=== PATIENT | male | born 1950 | race Caucasian/White ===

== ENCOUNTER 2024-05-04 10:54 | Day surgery (SDC) | payer OTHER ==
[~2024-05-04] VITALS: Ht 165.1 cm; Wt 59.0 kg
[2024-05-04] MEDS: LIDOCAINE 1% SDV 5ML VIAL As Ordered ONE (06:50)
[~2024-05-04 10:54] MED LIST: FLOM0.4C39 PO; LIDOCAINE 2% 100MG/5ML SDV (FOR ANES.) As Ordered ONE; OMEP10CASR PO; PHENYLEPHRINE 10% OPHTH SOL 5ML OS PRN; propofoL 200 MG/20 ML VIAL As Ordered ONE
[2024-05-04] MEDS: OFLOXACIN 0.3 % (OCUFLOX) OPTH SOL 5ML OS ONE (11:20)
[2024-05-04] MEDS: LIDOCAINE 3.5 % 1ML OPHTH TOPICAL GEL OU ONE (11:20)
[2024-05-04] MEDS: CYCLOPENTOLATE 1% OPHTH SOLN 2ML BTL OS SCH (11:29)
[2024-05-04] MEDS: TROPICAMIDE 1% OPHTH SOLN 15ML OS SCH (11:29)
[2024-05-04] MEDS: PHENYLEPHRINE 2.5% OPHTH SOL 2ML OS SCH (11:29)
[2024-05-04] MEDS ORDERED: fentaNYL 100 MCG/2 ML INJECTION As Ordered ONE (12:00)
[2024-05-04] MEDS ORDERED: MIDAZOLAM INJ 2MG/2ML VIAL As Ordered ONE (12:00)
[2024-05-04] MEDS: BSS IRRIG/VANCO(10MG)/TOBRA(5MG)/EPINEPH(1:1000-0.5CC)500ML BAG-ORONLY As Ordered ONE (12:14)
[2024-05-04] MEDS: CEFUROXIME 1MG/0.1ML INTRACAMERAL INJ As Ordered ONE (12:14)
[2024-05-04 12:28] VITALS: BP 146/76; TEMP 97.7; O2SAT 96
== END 2024-05-04 12:47 | disposition home or self-care (01) ==
LOC: M SDC 10:54
PROVIDERS: ATTEND Ophthalmology
DX: H25.12 Age-related nuclear cataract, left eye (principal); K21.9 Gastro-esophageal reflux disease without esophagitis; Z87.891 Personal history of nicotine dependence; Z79.51 Long term (current) use of inhaled steroids; Z79.899 Other long term (current) drug therapy; Z85.46 Personal history of malignant neoplasm of prostate; Z88.0 Allergy status to penicillin; Z88.8 Allergy status to other drugs, medicaments and biological substances
CPT/HCPCS: 66984; J0697; J2250; J3010; V2632

== ENCOUNTER 2024-05-11 08:40 | Day surgery (SDC) | payer OTHER ==
[~2024-05-11] VITALS: Ht 165.1 cm; Wt 59.1 kg
[2024-05-11] MEDS: OFLOXACIN 0.3 % (OCUFLOX) OPTH SOL 5ML OD ONE (06:00)
[2024-05-11] MEDS: LIDOCAINE 3.5 % 1ML OPHTH TOPICAL GEL OU ONE (06:00)
[~2024-05-11 08:40] MED LIST changes: +BSS IRRIG/VANCO(10MG)/TOBRA(5MG)/EPINEPH(1:1000-0.5CC)500ML BAG-ORONLY As Ordered ONE; +LIDOCAINE 1% SDV 5ML VIAL As Ordered ONE; -LIDOCAINE 2% 100MG/5ML SDV (FOR ANES.) As Ordered ONE; +PHENYLEPHRINE 10% OPHTH SOL 5ML OD PRN; -PHENYLEPHRINE 10% OPHTH SOL 5ML OS PRN; -propofoL 200 MG/20 ML VIAL As Ordered ONE
[2024-05-11] MEDS: TROPICAMIDE 1% OPHTH SOLN 15ML OD SCH (09:46)
[2024-05-11] MEDS: CYCLOPENTOLATE 1% OPHTH SOLN 2ML BTL OD SCH (09:46)
[2024-05-11] MEDS: PHENYLEPHRINE 2.5% OPHTH SOL 2ML OD SCH (09:46)
[2024-05-11] MEDS ORDERED: MIDAZOLAM INJ 2MG/2ML VIAL As Ordered ONE (10:10)
[2024-05-11] MEDS ORDERED: fentaNYL 100 MCG/2 ML INJECTION As Ordered ONE (10:10)
[2024-05-11 10:57] VITALS: BP 163/81; TEMP 97; O2SAT 95
== END 2024-05-11 11:15 | disposition home or self-care (01) ==
LOC: M SDC 08:40 → EDUNIT# 12:00
PROVIDERS: ATTEND Ophthalmology
DX: H25.11 Age-related nuclear cataract, right eye (principal); K21.9 Gastro-esophageal reflux disease without esophagitis; Z79.899 Other long term (current) drug therapy; Z98.42 Cataract extraction status, left eye; Z90.89 Acquired absence of other organs; Z88.0 Allergy status to penicillin; Z88.6 Allergy status to analgesic agent
CPT/HCPCS: 66984; J2250; J3010; V2632